=== PATIENT | male | born 2000 | race Caucasian/White ===

== ENCOUNTER 2020-04-14 10:01 | Emergency (ER) | payer BC ==
[~2020-04-14] VITALS: Ht 188 cm; Wt 131.5 kg
[~2020-04-14 10:01] MED LIST: ALLEGRA ALLERGY60 MG PO; FLONASE 0.05%50 MCG NASAL
[2020-04-14 10:40] LABS: ABSOLUTE EOSINOPHILS 0.1 thou/uL (0.0-0.7); ABSOLUTE LYMPHOCYTES 2.1 thou/uL (0.8-5.3); ABSOLUTE MONOCYTES 0.8 thou/uL (0.0-1.2); ABSOLUTE NEUTROPHILS 5.2 thou/uL (1.6-8.1); BASOPHILS 0.6 %; EOSINOPHILS 0.7 %; HEMATOCRIT 43.4 % (42.0-52.0); HEMOGLOBIN 15.1 gm/dL (14.0-18.0); LYMPHOCYTES 25.5 %; MCH 29.9 pg (26.0-34.0); MCHC 34.8 g/dL (28.0-37.0); MONOCYTES 10.1 %; MPV 8.7 fl. (7.2-11.1); NUCLEATED RBCS 0 /100WBC; PLATELET COUNT* 269 thou/uL (150-400); POLYS 63.1 %; RBC 5.05 mil/uL (4.50-6.00); RDW-CV 13.1 % (10.5-14.5); WBC 8.2 thou/uL (4.0-11.0)
[2020-04-14 10:49] LABS: CALCIUM 9.1 mg/dL (8.5-10.1); CREATININE 1.3 mg/dL (0.6-1.3); POTASSIUM 3.5 mmol/L (3.5-5.1)
[2020-04-14 10:59] LABS: ALBUMIN 4.2 g/dL (3.4-5.0); TOTAL BILIRUBIN 1.9 mg/dL (<0.1-1.0); TOTAL PROTEIN 7.8 g/dL (6.4-8.2)
[2020-04-14 11:00] LABS: URINE BILIRUBIN NEGATIVE (Negative); URINE BLOOD 3+ (Negative); URINE CLARITY SL CLOUDY; URINE COLOR YELLOW; URINE GLUCOSE-RANDOM NEGATIVE (Negative); URINE KETONES NEGATIVE (Negative); URINE LEUKOCYTES-REFLEX NEGATIVE (Negative); URINE NITRITE-REFLEX NEGATIVE (Negative); URINE PROTEIN 1+ (Negative); URINE SPECIFIC GRAVITY >= 1.030 (1.005-1.030); URINE UROBILINOGEN 0.2 E.U./dl (0.2-1.0)
[2020-04-14 11:05] LABS: BACTERIA-REFLEX 1-9 Few /HPF (None Seen); CASTS None Seen /LPF (None Seen); CRYSTALS None Seen /LPF (None Seen); MUCUS 4-6 Moderate strn/LPF (None Seen); SQUAMOUS 0-3 Few /LPF (0-3); URINE RBC >20 Many /HPF (0-2); URINE WBC-REFLEX 0-5 Rare /HPF (0-5)
[2020-04-14] MEDS ORDERED: NORCO 5-325 TA1 EAC2 PO (11:56)
[2020-04-14] MEDS ORDERED: CIPROFLOXACIN500 M1 PO (11:56)
[2020-04-14] MEDS ORDERED: FLOMAX0.4 MG PO (11:56)
[2020-04-14 12:03] VITALS: BP 140/78
--- NOTE | 2020-04-14 16:05 | EKG ---
[place] [address] ELECTROCARDIOGRAM REPORT Name: YAJAIRALORRIE Loving Room: [facility]#: [id number] Admission: 04/14/20 Attend Phys: Discharge: 04/14/20 Date of : 89 Date of Service: 04/14/20 [facility] Report #: [id number] THIS REPORT FOR: //name// [facility] ED Test Date: 2020-04-14 Test Time: 10:38:10 Pat Name: LORRIE GATES Department: Room: Gender: Night Clerk: : 2000 Requested By: Jayjay Barry Order Number: [id number] MD: Judd Intreiano Measurements Intervals [place] Rate: 83 P: 43 TX: 155 QRS: 0 QRSD: 100 T: 6 QT: 384 QTc: 452 Interpretive Statements Sinus rhythm Probable left ventricular hypertrophy Baseline wander in lead(s) I,II,aVR No previous ECG available for comparison Electronically Signed On 04-14-2020 16:05:36 CDT by Judd Interiano [email or web address] <ELECTRONICALLY SIGNED> By: Judd Interiano MD, [facility] 04/14/20 1605 1038 1038 Judd Interiano MD, [facility] /EPI
== END 2020-04-14 12:04 | disposition home or self-care (01) ==
LOC: M.ERS 10:01
PROVIDERS: Family Medicine
DX: N20.0 Calculus of kidney (principal); R11.2 Nausea with vomiting, unspecified